=== PATIENT | female | born 1925 | race African-American/Black ===

== ENCOUNTER → 2016-05-11 | Outpatient (CLI) | payer MEDICARE, OTHER ==
[2016-05-11 12:50] LABS: HEMOGLOBIN 12.9 g/dL (12.0-15.5); HGB HCT DIFFERENCE -1.3; MEAN CORPUSCULAR HGB CONC 32.2 g/dL (32.0-36.0); MEAN CORPUSCULAR VOLUME 90 fl (80-97); RED BLOOD COUNT 4.44 10^6/uL (3.72-5.28); RED CELL DISTRIBUTION WIDTH 14.4 % (11.5-14.0); WHITE BLOOD COUNT 16.8 10^3/uL (4.0-10.5)
[2016-05-11 13:12] LABS: ALANINE AMINOTRANSFERASE 39 U/L (9-52); ALBUMIN 4.1 g/dL (3.5-5.0); ALKALINE PHOSPHATASE 72 U/L (38-126); ANION GAP 16 (5-19); ASPARTATE AMINO TRANSFERASE 36 U/L (14-36); BILIRUBIN,TOTAL 0.6 mg/dL (0.2-1.3); BLOOD UREA NITROGEN 56 mg/dL (7-20); CALCIUM 10.1 mg/dL (8.4-10.2); CARBON DIOXIDE 33 mmol/L (22-30); CHLORIDE 96 mmol/L (98-107); CHOLESTEROL 251.72 mg/dL (0-200); CREATININE RESULT 1.64 mg/dL (0.52-1.25); Direct HDL 54 mg/dL (>40); GLUCOSE 119 mg/dL (75-110); POTASSIUM 4.7 mmol/L (3.6-5.0); SODIUM 144.8 mmol/L (137-145); TOTAL PROTEIN 7.9 g/dL (6.3-8.2); TRIGLYCERIDES 184 mg/dL (<150)
[2016-05-11 13:34] LABS: DIRECT LDL 156 mg/dL (<100)
[2016-05-11 13:38] LABS: VLDL CHOLESTEROL 36.8 mg/dL (10-31)
== END ==
LOC: OD 11:56
PROVIDERS: ATTEND Internal Medicine Cardiovascular Disease
DX: Z79.899 Other long term (current) drug therapy (principal)
CPT/HCPCS: 36415; 80048; 80061; 80076; 83735; 85027